=== PATIENT | male | born 1955 | race Caucasian/White ===

== ENCOUNTER 2020-04-02 16:47 | Emergency (ER) | payer MEDICARE, BC ==
--- NOTE | 2020-04-02 17:55 | ER Document Report ---
ED General - General Mode of Arrival: Ambulatory Information source: Patient, Relative TRAVEL OUTSIDE OF THE [place] IN LAST 30 DAYS: No - HPI Onset: Yesterday Onset/Duration: Sudden Quality of pain: Pressure Severity: Mild Associated symptoms: Shortness of breath Exacerbated by: Movement, Walking, Coughing, Deep breathing Relieved by: Denies Similar symptoms previously: No Recently seen / treated by doctor: Yes <SHAKIRA BLAIR - Last Filed: 04/02/20 19:18> <ERASMO ASIF - Last Filed: 04/04/20 02:23> - General Chief Complaint: Shortness Of Breath Stated Complaint: SHORTNESS OF BREATH Primary Care Provider: MANUEL MARK MD [ACTIVE STAFF] - Follow up as needed Notes: Patient is a 64-year-old male presenting to the emergency department from his oncologist office chief complaint of shortness of breath. Patient states that yesterday he had a sudden onset of right lower quadrant abdominal pain subsequently ended up with shortness of breath. Patient states that he went to his oncologist office today they did some blood work as well as a CAT scan of his chest and found him to have a large pulmonary embolism affecting the right lung. Patient was instructed to come to the emergency department for further evaluation and treatment. At time of presentation patient is alert oriented and in no acute distress. 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 Mylodysplastic syndrome <SHAKIRA BLAIR - Last Filed: 04/02/20 19:18> Review of Systems - Review of Systems Constitutional: No symptoms reported EENT: No symptoms reported Cardiovascular: No symptoms reported Respiratory: See HPI, Short of breath Gastrointestinal: No symptoms reported Genitourinary: Hematuria Male Genitourinary: No symptoms reported Musculoskeletal: No symptoms reported Skin: No symptoms reported Hematologic/Lymphatic: See HPI Neurological/Psychological: No symptoms reported -: Yes All other systems reviewed and negative <SHAKIRA BLAIR - Last Filed: 04/02/20 19:18> Physical Exam <SHAKIRA BLAIR - Last Filed: 04/02/20 19:18> - Vital signs Vitals: Temp 98.5 F 04/02/20 16:48 - Notes Notes: PHYSICAL EXAMINATION: GENERAL: Well-appearing, well-nourished and in no acute distress. HEAD: Atraumatic, normocephalic. EYES: Pupils equal round and reactive to light, extraocular movements intact, sclera anicteric, conjunctiva are normal. ENT: nares patent, oropharynx clear without exudates. Moist mucous membranes. NECK: Normal range of motion, supple without lymphadenopathy, no appreciable JVD LUNGS: Lungs clear to auscultation bilaterally and equal. No wheezes rales or rhonchi. HEART: Regular rate and rhythm without murmurs ABDOMEN: Soft, nontender, normal bowel sounds. No guarding, no rebound. No masses appreciated. EXTREMITIES: Active full range of motion, no pitting or edema. No cyanosis. 2+ pulses x4 NEUROLOGICAL: No focal neurological deficits. Moves all extremities spontaneously and on command. SKIN: Warm, Dry, and intact. Normal turgor, no rashes or lesions noted. (SHAKIRA BLAIR) Course - Laboratory Result Diagrams: 04/02/20 17:12 - Diagnostic Test Radiology reviewed: Reports reviewed - EKG Interpretation by [facility] EKG shows normal: Sinus rhythm Rate: Normal Rhythm: NSR When compared to previous EKG there are: Previous EKG unavailable <SHAKIRA BLAIR - Last Filed: 04/02/20 19:18> - Laboratory Result Diagrams: 04/02/20 17:12 04/02/20 17:12 - Diagnostic Test Radiology reviewed: Reports reviewed <ERASMO ASIF - Last Filed: 04/04/20 02:23> - Re-evaluation Re-evalutation: 04/02/20 17:50 Per radiology: Patient has a large near completely occlusive thrombus within the right main pulmonary artery extending into the segmental and subsegmental branches. There is also associated right heart strain. 04/02/20 19:18 I spoke with the local hospitalist who recommended talking to our civil laboratory technician in regards to possible admission. The civil laboratory technician did come down to the emergency department and evaluated the patient however states that considering the patient has a rather extensive and complicated history he feels the patient will be better served at a larger institution. Patient and family member at bedside are agreeable with this they state that they normally are seen at [facility] and specifically see Dr. Torrez from oncology. I have placed a call to [facility] to speak to the hospitalist in regards to transferring the patient for higher level care of right-sided large pulmonary embolism. I have reviewed the patient's labs and on March 21 the patient's white blood cell count was 2.6 hemoglobin 8.0 hematocrit 24.1 and platelets of 71. On Apr 02 at the oncologist office patient's white blood cell count was 5.0 hemoglobin 9.9 hematocrit 30.8 and platelets 89. Patient will be signed out to oncoming physician for further management and discussion with [facility] in regards to transferring this patient. (SHAKIRA BLAIR) 04/02/20 23:16 I have received this pt from Dr. Blair at the change of shift. He is stable and resting in his bed currently. [facility] has accepted the pt in transfer and the transfer team is here evaluating the pt for transfer. He is stable for transfer. (ERASMO ASIF) - Vital Signs Vital signs: Temp Pulse Resp BP Pulse Ox 97.6 F 93 18 163/85 H 94 04/02/20 23:12 04/02/20 16:53 04/02/20 23:11 04/02/20 23:12 04/02/20 23:12 - Laboratory Laboratory results interpreted by me: 04/02/20 04/02/20 17:12 17:12 RBC 3.05 L Hgb 9.3 L Hct 27.5 L RDW 18.2 H Plt Count 62 L Sodium 135.8 L Creatinine 1.26 H Est GFR (MDRD) Non-Af 57 L Discharge <SHAKIRA BLAIR - Last Filed: 04/02/20 19:18> <ERASMO ASIF - Last Filed: 04/04/20 02:23> - Discharge Clinical Impression: Pulmonary embolism Qualifiers: Pulmonary embolism type: saddle Chronicity: unspecified Acute cor pulmonale presence: unspecified Qualified Code(s): I26.92 - Saddle embolus of pulmonary artery without acute cor pulmonale Condition: Fair Disposition: [facility] Referrals: MANUEL MARK MD [ACTIVE STAFF] - Follow up as needed
[2020-04-02 18:14] LABS: ALBUMIN 4.8 g/dL (3.5-5.0); ALKALINE PHOSPHATASE 81 U/L (38-126); ANION GAP 9 (5-19); ASPARTATE AMINO TRANSFERASE 33 U/L (17-59); BILIRUBIN,DIRECT 0.4 mg/dL (0.0-0.4); BILIRUBIN,TOTAL 1.1 mg/dL (0.2-1.3); BLOOD UREA NITROGEN 18 mg/dL (7-20); CALCIUM 9.3 mg/dL (8.4-10.2); CARBON DIOXIDE 28 mmol/L (22-30); CHLORIDE 99 mmol/L (98-107); GLUCOSE 106 mg/dL (75-110); POTASSIUM 4.3 mmol/L (3.6-5.0); TOTAL PROTEIN 7.7 g/dL (6.3-8.2)
[2020-04-02 20:19] LABS: HEMATOCRIT 27.5 % (37.9-51.0); HEMOGLOBIN 9.3 g/dL (13.5-17.0); MEAN CORPUSCULAR HEMOGLOBIN 30.4 pg (27.0-33.4); MEAN CORPUSCULAR HGB CONC 33.7 g/dL (32.0-36.0); MEAN CORPUSCULAR VOLUME 90 fl (80-97); RED BLOOD COUNT 3.05 10^6/uL (4.35-5.55); RED CELL DISTRIBUTION WIDTH 18.2 % (11.5-14.0); WHITE BLOOD COUNT 5.3 10^3/uL (4.0-10.5)
[2020-04-02 20:39] LABS: PLATELET COUNT 62 10^3/uL (150-450)
[2020-04-02 23:25] VITALS: BP 163/85
--- NOTE | 2020-04-03 08:28 | EKG REPORT ---
SEVERITY:- BORDERLINE ECG - SINUS RHYTHM BORDERLINE T WAVE ABNORMALITIES : Confirmed by: Chen Ladd MD 03-Apr-2020 08:26:16
== END 2020-04-02 23:26 | disposition short-term general hospital (02) ==
LOC: ER 16:47
DX: I26.92 Saddle embolus of pulmonary artery without acute cor pulmonale (principal); R06.02 Shortness of breath; R31.9 Hematuria, unspecified; Z88.8 Allergy status to other drugs, medicaments and biological substances
CPT/HCPCS: 36415; 71275; 74018; 80053; 82565; 84484; 85027; 93005; 93010; 99285

== ENCOUNTER → 2020-04-02 | Outpatient (CLI) | payer MEDICARE, BC ==
--- NOTE | 2020-04-02 15:45 | RADIOLOGY REPORT (SQ) ---
EXAM DESCRIPTION: KUB/ABDOMEN (SINGLE VIEW) IMAGES COMPLETED DATE/TIME: 04/02/2020 3:36 pm REASON FOR STUDY: R10.31 RIGHT LOWER QUADRANT PAIN R31.9 HEMATURIA, UNSPECIFIED R06.02 SHORTNESS O F BREATH R10.31 RIGHT LOWER QUADRANT PAIN COMPARISON: None. NUMBER OF VIEWS: One view. TECHNIQUE: Supine radiographic image of the abdomen acquired. LIMITATIONS: None. FINDINGS: BOWEL GAS PATTERN: Normal bowel gas pattern. No dilated loops. CALCIFICATIONS: No suspicious calcifications. SOFT TISSUES: No gross mass or suggestion of organomegaly. HARDWARE: None in the abdomen. BONES: No acute fracture. No worrisome bone lesions. OTHER: No other significant finding. IMPRESSION: NO RADIOGRAPHIC EVIDENCE FOR ACUTE ABDOMINAL DISEASE. TECHNICAL DOCUMENTATION: JOB ID: [id number] 2010 [employer]- All Rights Reserved Reading location - IP/workstation name: [email or web address]
--- NOTE | 2020-04-02 16:17 | RADIOLOGY REPORT (SQ) ---
EXAM DESCRIPTION: CTA CHEST IMAGES COMPLETED DATE/TIME: 04/02/2020 3:47 pm REASON FOR STUDY: R06.02 SHORTNESS OF BREATH R31.9 HEMATURIA, UNSPECIFIED R06.02 SHORTNESS OF HEBER TH R10.31 RIGHT LOWER QUADRANT PAIN COMPARISON: None. TECHNIQUE: CT scan of the chest performed using helical scanning technique with dynamic intravenous contrast injection. Images reviewed with lung, soft tissue and bone windows. Reconstructed coronal and sagittal MPR images reviewed. Additional 3 dimensional post-processing performed to develop Maximal Intensity Projection images ([place] P). All images stored on PACS. All CT scanners at this facility use dose modulation, iterative reconstruction, and/or weight based d osing when appropriate to reduce radiation dose to as low as reasonably achievable (ALARA). [facility]: Dose Right [facility]: CareDose [facility]: Dose Right [facility]: Teradose 4D [facility]: PushCall CONTRAST TYPE AND DOSE: contrast/concentration: Isovue 350.00 mmol/ml; Total Contrast Delivered: 75. 0 ml; Total Saline Delivered: 60.0 ml Contrast bolus adequate for pulmonary arteries and aorta. RENAL FUNCTION: Creatinine 1.4 RADIATION DOSE: CT Rad equipment meets quality standard of care and radiation dose reduction technUrban Metrics ues were employed. CTDIvol: 12.7 - 19.7 mGy. DLP: 524 mGy-cm. . LIMITATIONS: None. FINDINGS: LUNGS AND PLEURA: There is a 6 mm rounded pulmonary nodule within the right upper lobe (ax ial image 17). No masses, infiltrates, or pneumothorax. No pleural effusions or pleural calcificati ons. AORTA AND GREAT VESSELS: No aneurysm. No dissection. HEART: Flattening of the interventricular septum, consistent with right heart strain. Incidental not e is made of a 2 cm pericardial cyst. Three-vessel coronary artery disease is demonstrated. PULMONARY ARTERIES: There is a large acute thrombus within the left main pulmonary artery extending i nto the segmental branches with demonstrated blood flow to the right upper lobe only. HILAR AND MEDIASTINAL STRUCTURES: No identified masses or abnormal nodes. HARDWARE: None in the chest. UPPER ABDOMEN: Limited exam. Splenomegaly. THYROID AND OTHER SOFT TISSUES: No masses. No adenopathy. BONES: No acute or significant finding. 3D MIPS: Confirm above findings. OTHER: No other significant finding. IMPRESSION: Large, near completely occlusive thrombus within the right main pulmonary artery extendi ng into the segmental and subsegmental branches. Associated right heart strain. COMMENT: Pertinent findings on the imaging study reported as a CRITICAL RESULT to ANA M CORNELIUS at16:07 on 04/02/2020. Category of Critical Result: Pulmonary embolus. Quality ID # [id number]: Final reports with documentation of one or more dose reduction techniques (e.g., Au tomated exposure control, adjustment of the mA and/or kV according to patient size, use of iterative reconstruction technique) TECHNICAL DOCUMENTATION: JOB ID: [id number] 2010 [employer]- All Rights Reserved Reading location - IP/workstation name: [email or web address]
== END ==
LOC: RAD 15:22
PROVIDERS: ATTEND Nurse Practitioner Family
DX: I26.99 Other pulmonary embolism without acute cor pulmonale (principal); R06.02 Shortness of breath; R10.31 Right lower quadrant pain; D46.9 Myelodysplastic syndrome, unspecified; R31.9 Hematuria, unspecified
CPT/HCPCS: 71275; 74018; 82565